=== PATIENT | male | born 1960 | race Two or more races ===

== ENCOUNTER 2020-10-12 19:10 | Emergency (ER) | payer SELFPAY ==
--- NOTE | 2020-10-12 19:49 | CR ---
INDICATION: Cough. CHEST, ONE VIEW: An AP upright portable view of the chest was obtained 10/12/20 - no comparison. Patchy infiltration is noted in the right upper lung field and left lower and mid lung field. Findings may represent pneumonia. A process such as COVID-19 cannot be excluded. The heart appears somewhat enlarged but it is emphasized by the AP positioning and a very poor inspiration. Exogenous obesity is noted. MTDD
[2020-10-12] MEDS ORDERED: Sodium Chloride 0.9% 1,000 ML IV SCH (20:45)
[2020-10-12 20:52] VITALS: BP 175/99; PULSE 112
[2020-10-12] MEDS ORDERED: Dexamethasone 4 MG/ML SDV IVPUSH ONE (20:53)
[2020-10-12] MEDS ORDERED: Acetaminophen 325 MG Tab PO ONE (20:53)
[2020-10-12] MEDS ORDERED: REMDESIVIR 200 MG in Sodium Chloride 0.9% 250 ML IV ONE (20:53)
--- NOTE | 2020-10-12 20:53 | EDM.PDOC ---
ED HPI GENERAL MEDICAL PROBLEM - General Chief Complaint: Respiratory Problem Stated Complaint: Shortness of Breath Time Seen by Provider: 10/12/20 20:46 Source of Information: Reports: Patient History Limitations: Reports: Language Barrier - History of Present Illness INITIAL COMMENTS - FREE TEXT/NARRATIVE: Reddy is a 59 yo Male with cough,SOB and fever of progressive onset since last week. His daughter has had COVID. He was tested last week but results are pending.On presentation,he has a temp of 10.9,RR of 30 and PO2 of 88% on RA. 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, NSAIDS Generalized Pain Score (Numeric/FACES): 5 - Related Data Allergies Allergy/AdvReac Type Severity Reaction Status Date / Time No Known Allergies Allergy Verified 06/27/15 06:15 Home Meds: Home Meds Acetaminophen/HYDROcodone [[place] 325-5 MG] 2 tab PO Q4H PRN #30 tablet 06/28/15 [Rx] Past Medical History - Past Health History Medical/Surgical History: Denies Medical/Surgical History Other HEENT History: significant hearing impaired on right Respiratory History: Reports: Asthma - Past Surgical History GI Surgical History: Reports: Cholecystectomy Social & Family History - Tobacco Use Tobacco Use Status *Q: Light Tobacco User Years of Tobacco use: 45 Packs/Tins Daily: 0 - Caffeine Use Caffeine Use: Reports: Coffee - Recreational Drug Use Recreational Drug Use: No - Living Situation & Occupation Living situation: Reports: Occupation: Employed ED ROS GENERAL - Review of Systems Review Of Systems: Comprehensive ROS is negative, except as noted in HPI. ED EXAM, GENERAL - Physical Exam Exam: See Below Exam Limited By: Language Barrier General Appearance: Alert, Moderate Distress Ears: Normal External Exam Head: Atraumatic Respiratory/Chest: Respiratory Distress Cardiovascular: Normal Peripheral Pulses Neurological: Alert Psychiatric: Normal Affect Skin Exam: Warm Course - Vital Signs Last Recorded V/S: Last Vital Signs Temp 102.3 F H 10/12/20 20:51 Pulse 112 H 10/12/20 20:51 Resp 34 H 10/12/20 20:51 BP 175/99 H 10/12/20 20:51 Pulse Ox 96 10/12/20 20:51 - Orders/Labs/Meds Orders: Active Orders 24 hr Category Date Time Status Precautions [COMM] Routine Oth 10/12/20 19:34 Ordered Labs: Laboratory Tests 10/12/20 10/12/20 10/12/20 Range/Units 19:45 19:45 19:45 WBC 8.8 (3.2-10.1) x10-3/uL RBC 5.00 (3.90-5.90) x10(6)uL Hgb 14.7 (12.9-17.7) g/dL Hct 43.3 (38.3-50.1) % MCV 86.6 (80.8-98.7) fL MCH 29.5 (27.0-33.3) pg MCHC 34.0 (28.7-35.3) g/dL RDW 12.9 (12.4-15.0) % Plt Count 210 (117-477) x10(3)uL MPV 8.0 (6.7-11.0) fL Neut % (Auto) 88.6 H (40.3-71.8) % Lymph % (Auto) 5.7 L (15.8-45.3) % [place] % (Auto) 5.4 L (5.5-15.2) % Eos % (Auto) 0.0 L (0.1-6.8) % Baso % (Auto) 0.3 (0.3-3.8) % Neut # (Auto) 7.8 H (1.7-6.9) x10-3/uL Lymph # (Auto) 0.5 (0.5-4.5) x10-3/uL [place] # (Auto) 0.5 (0.0-1.2) x10-3/uL Eos # (Auto) 0.0 (0.0-0.6) x10-3/uL Baso # (Auto) 0.0 (0.0-0.3) x10-3/uL Sodium 131 L (135-145) mmol/L Potassium 3.5 (3.5-5.3) mmol/L Chloride 94 L (100-110) mmol/L Carbon Dioxide 29 (21-32) mmol/L BUN 10 (7-18) mg/dL Creatinine 0.8 (0.70-1.30) mg/dL Est Cr Clr Drug Dosing 84.35 mL/min Estimated GFR (MDRD) > 60 (>60) BUN/Creatinine Ratio 12.5 (9-20) Glucose 153 H (80-116) mg/dL Calcium 8.1 L (8.6-10.2) mg/dL SARS-CoV-2 RNA ([facility]CHO) Positive H (NEGATIVE) Meds: Medications Discontinued Medications Generic Name Dose Route Start Last Admin Trade Name Hoa PRN Reason Stop Dose Admin Acetaminophen 650 mg 10/12/20 20:53 Tylenol PO 10/12/20 20:54 NOW ONE Dexamethasone 6 mg 10/12/20 20:53 Decadron IVPUSH 10/12/20 20:54 ONETIME ONE Sodium Chloride 1,000 mls @ 999 mls/hr 10/12/20 20:45 Normal Saline IV ASDIRECTED FELIX Remdesivir 200 mg/ Sodium 250 mls @ 250 mls/hr 10/12/20 20:53 Chloride IV 10/12/20 20:54 ONETIME ONE Departure - Departure Time of Disposition: 21:06 Disposition: DC/Tfer to Acute Hospital 02 Condition: Poor Clinical Impression: Pneumonia, Pneumonia due to COVID-19 virus - Discharge Information Referrals: PCP,None [Primary Care Provider] - Forms: ED Department Discharge Sepsis Event Note (ED) - Evaluation Sepsis Screening Result: No Definite Risk - Focused Exam Vital Signs: Vital Signs Temp Pulse Resp BP Pulse Ox 10/12/20 20:51 102.3 F H 112 H 34 H 175/99 H 96 10/12/20 19:10 100.9 F H 107 H 30 H 182/88 H 92 L - Problem List & Annotations (1) Respiratory distress, acute SNOMED Code(s): 214368636 Code(s): R06.03 - ACUTE RESPIRATORY DISTRESS Status: Acute (2) Pneumonia due to COVID-19 virus SNOMED Code(s): 057308575969004347 Code(s): U07.1 - COVID-19; J12.89 - OTHER VIRAL PNEUMONIA Status: Acute - Problem List Review Problem List Initiated/Reviewed/Updated: Yes - My Orders Last 24 Hours: My Active Orders 10/12/20 19:34 Precautions [COMM] Routine - Assessment/Plan Last 24 Hours: My Active Orders 10/12/20 19:34 Precautions [COMM] Routine Plan: I spoke with Dr Reid at [facility]. Reddy qualifies for severe infection and admission. He has hypoxia and CXR evidence. We started Remdesivr,Decadron and some Tylenol. Will go by ground Ambulance.
== END 2020-10-12 21:34 ==
LOC: FB.ED 19:10
DX: U07.1 COVID-19 (principal); J12.89 Other viral pneumonia; J45.909 Unspecified asthma, uncomplicated; F17.200 Nicotine dependence, unspecified, uncomplicated
CPT/HCPCS: 36415; 71045; 80048; 85025; 96365; 96375; 99285; 99285-25; A9270-GY; J1100; J7050; U0002